=== PATIENT | female | born 1940 | race Caucasian/White ===

== ENCOUNTER 2016-10-18 08:49 | Day surgery (SDC) | payer OTHER, MEDICARE ==
[2016-10-18] MEDS ORDERED: THROMBIN (BOVINE) 5,000 UNIT VIAL TP ONE (09:12)
--- NOTE | 2016-10-18 09:12 | HP ---
[facility]ellite [facility] - Chief Complaint History of Present Illness: 76 year old female with recent angio procedure on right leg who developed a left femoral pseudoaneurysm at the access site. She has been observed with serial ultrasound showing the PA 1.7 - 1.8 cm diameter which has not closed. She has mild pain in the groin. No problem walking. History Source: Patient, Medical Record Limitations to Obtaining History: No Limitations - Past Medical History Allergies/Adverse Reactions: Allergies Allergy/AdvReac Type Severity Reaction Status Date / Time erythromycin base Allergy Verified 09/16/16 09:13 Penicillins Allergy Verified 09/16/16 09:13 Cardiovascular: Yes: Hyperlipdemia - Current Medications Current Medications: Home Medications Medication Instructions Recorded Atorvastatin Ca [Lipitor] 10 mg PO HS 09/16/16 Cilostazol [Pletal -] 100 mg PO DAILY 09/16/16 Clopidogrel Bisulfate [Plavix -] 75 mg PO DAILY 09/16/16 Satellite Physical Exam - Physical Examination General Appearance: Well Developed, Alert & Oriented x3 Lung: Clear to auscultation Heart: Regular rate & rhythm Abdomen: Soft, No tenderness Extremities: No edema, Other (Left femoral fullness without discrete mass.) Neurological: Intact Satellite Impression/Plan - Impression/Plan Impression: Pseudoaneurysm left femoral artery. Operative Procedure: Ultrasound guided thrombin injection of pseudoaneurysm. Date to be Performed: 10/18/16
[2016-10-18 09:31] VITALS: TEMP 97.3; BMI 23.6
[2016-10-18] MEDS ORDERED: ACETAMINOPHEN 325 MG TABLET (FP) PO PRN (10:52)
--- NOTE | 2016-10-18 10:57 | PROC ---
Procedure Note Procedure: Ultrasound guided thrombin injection of left femoral pseudoaneurysm. Indication: Left femoral pseudoaneurysm Local anesthesia. Post-procedure Duplex showed no flow in PA, normal [employer] pulse.
[2016-10-18 11:11] VITALS: PULSE 90
--- NOTE | 2016-10-18 12:18 | OP ---
DATE OF OPERATION: 10/18/2016 SURGEON: Sukhjinder Vickers MD PROCEDURE: Ultrasound-guided injection of thrombin into the left femoral artery pseudoaneurysm. INDICATION: Left femoral artery pseudoaneurysm. FINDINGS: This 76-year-old woman is approximately 1 month status post a left femoral angiogram. Postprocedure she developed a pseudoaneurysm at the access site, which measured approximately 18-mm in diameter. This has been observed for 1 month without change in size or patency. The patient is brought to ultrasound for repeat study and planned thrombin injection. Initial Duplex findings are unchanged with an approximately 18-mm pseudoaneurysm arising from the left common femoral artery with a 3-mm neck. Following the injection procedure, flow into the pseudoaneurysm was obliterated and there was normal common femoral artery pulse. PROCEDURE: The patient was brought to ultrasound and diagnostic study performed. The left groin was prepped with ChloraPrep. Xylocaine 1% was infiltrated in the skin over the pseudoaneurysm. Under direct ultrasound guidance, a 22-gauge spinal needle was advanced through the skin into the lumen of the pseudoaneurysm and then thrombin, which had been dilated to 100 units per mL, was slowly injected into the pseudoaneurysm cavity with color flow Duplex imaging until all color flow was obliterated. Approximately 2 mL of solution was injected. Pressure was gently applied with the probe and then completion imaging showed no flow within the pseudoaneurysm. A Band-Aid was applied to the puncture site and the patient was taken back to [facility] in stable condition. SUKHJINDER VICKERS M.D. [id number]
[2016-10-18 12:23] VITALS: BP 174/90
== END 2016-10-18 12:23 | disposition home or self-care (01) ==
LOC: JASU-SURG 08:49 → EDSTATUS 10:00 → JASU-SURG 12:23
PROVIDERS: ATTEND Surgery
PROC: B44LZZZ Ultrasonography of Femoral Artery (ICD-10-PCS; principal; 2016-10-18)
PROC: 3E05317 Introduction of Other Thrombolytic into Peripheral Artery, Percutaneous Approach (ICD-10-PCS; 2016-10-18)
DX: I72.4 Aneurysm of artery of lower extremity (principal)
CPT/HCPCS: 76937-TC; 77001-TC; 93926-TC